=== PATIENT | male | born 1955 ===

== ENCOUNTER 2019-08-11 11:18 | Emergency (ER) | payer OTHER, SELFPAY ==
[2019-08-11 11:36] VITALS: BP 137/78; PULSE 65; RESP 16; TEMP 36.9; O2SAT 98
--- NOTE | 2019-08-11 11:48 | DI.RAD.S_ITS ---
PROCEDURE: XR CHEST 2V INDICATIONS: cough/sob TECHNIQUE: 2 views of the chest were acquired. COMPARISON: [facility], , CHEST 1 VIEW, 11/07/2016, 0:47. FINDINGS: Surgical changes and devices: None. Lungs and pleura: Lungs are clear. No pleural effusions or pneumothorax. Mediastinum: Mediastinal contours are normal. Heart size is normal. Bones and chest wall: No suspicious bony abnormalities. Soft tissues appear unremarkable. IMPRESSION: No acute pulmonary process. Dictated by: Sophia Salguero M.D. on 08/11/2019 at 12:18 Approved by: Sophia Salguero M.D. on 08/11/2019 at 12:19
--- NOTE | 2019-08-11 12:03 | ED_ITS ---
HPI - URI/Sore Throat <HITESH Hartman - Last Filed: 08/11/19 20:19> General Chief Complaint: Upper Respiratory Symptoms Stated Complaint: flu like symptoms Time Seen by Provider: 08/11/19 11:39 Source: patient Mode of arrival: Ambulatory Limitations: no limitations History of Present Illness HPI Narrative: 64-year-old male with history of 30 pack years of smoking, DC 2 years ago, diabetes, and high cholesterol, presents emergency department today complaining of a cough that has been lasting the past 2 weeks. He states he originally had an upper respiratory tract infection with a sore throat and nasal congestion cough. Nasal congestion and sore throat have resolved but he continues to cough. He states it is a intermittent dry cough that is worse at night. He coughs so hard he develops a headache at times. Patient denies any fevers, chills, nausea, vomiting, diarrhea, dysuria, or other concerns. Related Data Home Medications Medication Instructions Recorded Confirmed pioglitazone [Actos] PO QDAY #0 11/07/16 rosuvastatin [Crestor] PO QDAY #0 11/07/16 Previous Rx's Medication Instructions Recorded aspirin 325 mg PO QDAY #30 tab 11/07/16 heparin (porcine) 1,000 unit IV Q1H #10 ml 11/07/16 metoprolol tartrate 25 mg PO Q6H #30 tab 11/07/16 nitroglycerin [Nitrostat] 0.4 mg SUBLINGUAL PRN PRN #30 tab 11/07/16 rosuvastatin [Crestor] 10 mg PO QDAY #30 tab 11/07/16 albuterol sulfate 2 puff INHALATION Q4-6H PRN #8 gram 08/11/19 benzonatate [Tessalon Perles] 100 mg PO BID PRN #20 cap 08/11/19 fluticasone propionate [Flonase 1 spray NASAL BID #15.8 ml 08/11/19 Allergy Relief] Allergies Allergy/AdvReac Type Severity Reaction Status Date / Time No Known Allergies Allergy Uncoded 01/07/18 12:41 Review of Systems <HITESH Hartman - Last Filed: 08/11/19 20:19> Review of Systems Narrative: REVIEW OF SYSTEMS: GENERAL: Denies fevers. HENT: No head trauma or hearing loss. EYES: No loss of vision, double vision, eye pain, irritation or discharge. CARDIOVASCULAR: No chest pain or syncope. RESPIRATORY: Reports cough, see HPI. GASTROINTESTINAL: No nausea, vomiting, diarrhea, or constipation. MUSCULOSKELETAL: No weakness or injury. INTEGUMENTARY: No rash, lesions, or pruritus. NEURO: No memory loss, or confusion. Patient History <HITESH Hartman - Last Filed: 08/11/19 20:19> Medical History Diabetes (Acute) Social History Smoking Status: Current every day smoker tobacco type: cigarettes alcohol intake frequency: holidays/special occasions only Substance Use Type: does not use Exam <HITESH Hartman - Last Filed: 08/11/19 20:19> Initial Vital Signs Initial Vital Signs: Vital Signs Temperature 98.5 F 08/11/19 11:36 Pulse Rate 65 08/11/19 11:36 Respiratory Rate 16 08/11/19 11:36 Blood Pressure 137/78 08/11/19 11:36 Pulse Oximetry 98 08/11/19 11:36 PHYSICAL EXAMINATION: GENERAL: Well groomed, alert, and cooperative. Answers questions promptly and appropriately. Vital signs noted. HENT: Normocephalic, atraumatic. Ear canals patent. TMs intact without mucus or erythema. Oropharynx without erythema. Tonsils are not present. EYES: Conjunctiva pink, sclera white, no periorbital swelling. No discharge. CHEST: Normal to inspection and without deformities. CARDIOVASCULAR: S1 and S2 sounds normal. Regular rate and rhythm, no murmurs, clicks, or bruits. RESPIRATORY: Normal respiratory rate, trachea midline, airway patent. No stri michael, nasal flaring or accessory muscle use. Able to speak in full sentences. Lower lung branch with scattered coarse breath sounds that clear with coughing. No wheezes or crackles heard. MUSCULOSKELETAL: Normal gait and coordination. Equal tone and mass bilaterally. EXTREMITIES: Moves all extremities. SKIN: Warm, dry, soft, appropriate color for ethnicity. No lesions, rashes, or wounds. NEURO: Alert and Oriented X 3. Good coordination. No ataxia or cognitive issues. PSYCH: Appropriate affect and mood. <Gabriele Mariscal DO - Last Filed: 08/11/19 20:20> Initial Vital Signs Initial Vital Signs: Vital Signs Temperature 98.5 F 08/11/19 11:36 Pulse Rate 65 08/11/19 11:36 Respiratory Rate 16 08/11/19 11:36 Blood Pressure 137/78 08/11/19 11:36 Pulse Oximetry 98 08/11/19 11:36 Course <HITESH Hartman - Last Filed: 08/11/19 20:19> Course Course Narrative: Patient was given a DuoNeb during his stay in the emergency department, patient reported improvement after administration of medication. Orders Ordered: ED Orders 08/11/19 11:48 Chest [XR chest 2V] Stat Discontinued Medications Albuterol/Ipratropium (Duoneb) 3 ml INH NOW ONE Stop: 08/11/19 12:04 Last Admin: 08/11/19 12:42 Dose: 3 ml Documented by: KALI Consultations Consultation #1: Patient staffed with Dr. Mariscal. Vital Signs Vital signs: Vital Signs - 8 hr 08/11/19 12:46 Pulse Rate 62 Respiratory Rate 12 Pulse Oximetry 100 <Gabriele Mariscal DO - Last Filed: 08/11/19 20:20> Orders Ordered: ED Orders 08/11/19 11:48 Chest [XR chest 2V] Stat Discontinued Medications Albuterol/Ipratropium (Duoneb) 3 ml INH NOW ONE Stop: 08/11/19 12:04 Last Admin: 08/11/19 12:42 Dose: 3 ml Documented by: KALI Vital Signs Vital signs: Vital Signs - 8 hr 08/11/19 12:46 Pulse Rate 62 Respiratory Rate 12 Pulse Oximetry 100 MDM - URI/Sore Throat <HITESH Hartman - Last Filed: 08/11/19 20:19> Medical Records Attestation: I reviewed the patient's medical records. Lab Data Attestation: I reviewed the patient's lab results. Imaging Data Chest x-ray: Radiologist's impression: [address] [address] XRay Report Signed Patient: Henry Coronado#: [id number] : 5Acct:[id number] Age/Sex: 64 / MDate of Service: 08/11/19 Loc: ED Accession Number: [id number] Procedure: XR chest 2V Ordering Provider: Cynthia Kenney PROCEDURE: XR CHEST 2V INDICATIONS: cough/sob TECHNIQUE: 2 views of the chest were acquired. COMPARISON: [facility], , CHEST 1 VIEW, 11/07/2016, 0:47. FINDINGS: Surgical changes and devices: None. Lungs and pleura: Lungs are clear. No pleural effusions or pneumothorax. Mediastinum: Mediastinal contours are normal. Heart size is normal. Bones and chest wall: No suspicious bony abnormalities. Soft tissues appear unremarkable. IMPRESSION: No acute pulmonary process. Dictated by: Sophia Salguero M.D. on 08/11/2019 at 12:18 Approved by: Sophia Salguero M.D. on 08/11/2019 at 12:19 [facility] Narrative Medical decision making narrative: This is a 64-year-old smoker with 30 pack year history, presenting to the emergency department for prolonged cough after a viral illness. Chest x-rays negative for any consolidation. Differential i ncludes atypical pneumonia (less likely due to lack of systemic symptoms such as fevers shortness of breath), bronchitis (possible due to prolonged cough, very low suspicion for bacterial bronchitis due to lack of systemic symptoms such as fever and tachycardia), COPD (most likely part of respiratory illness due to prolonged smoking history and continue cough, improvement of symptoms with administration of a DuoNeb). Patient was prescribed an albuterol inhaler, tessalon Perles, and Flonase (to help with postnasal drip). Smoking cessation counseling was given to patient. He was encouraged to follow up with his primary care provider in the next few weeks for re-evaluation. Return precautions given for new or worsening symptoms. Discharge Plan Departure Patient Disposition: Home Clinical Impression: Cough Discharge Date/Time: 08/11/19 13:29 Instructions: DI for Cough -- Adult, How to Quit Smoking Activity Restrictions/Additional Instructions: Thank you for entrusting me with your care today. As discussed, your x-rays negative for any acute findings such as pneumonia. I prescribed you ibuprofen for your headache, an albuterol inhaler and Tessalon Perles for your cough, and Flonase to help with postnasal drip. Please follow up with your primary care provider in the next few weeks for re-evaluation. I highly encouraged smoking cessation. Return emergency department if you develop worsening symptoms such as fever, worsening shortness of breath, uncontrollable vomiting, chest pain, or etc. Prescriptions: New albuterol sulfate 90 mcg/actuation HFA aerosol inhaler 2 puff INHALATION Q4-6H PRN (Reason: shortness of breath or wheezing) Qty: 8 RF: 0 benzonatate [Tessalon Perles] 100 mg capsule 100 mg PO BID PRN (Reason: cough) Qty: 20 RF: 0 fluticasone propionate [Flonase Allergy Relief] 50 mcg/actuation spray,suspension 1 spray NASAL BID Qty: 15.8 RF: 0 No Action pioglitazone [Actos] 15 mg tablet PO QDAY Qty: 0 RF: 0 rosuvastatin [Crestor] 5 mg tablet PO QDAY Qty: 0 RF: 0 aspirin 325 MG tablet,delayed release (DR/EC) 325 mg PO QDAY Qty: 30 RF: 0 heparin (porcine) 5,000 UNIT/1 ML solution 1,000 unit IV Q1H Qty: 10 RF: 0 metoprolol tartrate 25 MG tablet 25 mg PO Q6H Qty: 30 RF: 0 nitroglycerin [Nitrostat] 0.4 MG tablet, sublingual 0.4 mg Sublingual PRN PRNQty: 30 RF: 0 rosuvastatin [Crestor] 10 MG tablet 10 mg PO QDAY Qty: 30 RF: 0 <Gabriele Mariscal, DO - Last Filed: 08/11/19 20:20> Sign Out Provider Sign Out Attestation: Dr Mariscal Co-Sign Statement: I was available for consultation during this patient's emergency department visit. This chart is signed by myself for administrative purposes only. I did not have direct contact with this patient during this visit. They were seen independently by the APC.
[2019-08-11] MEDS: ALBUTEROL/IPRATROPIUM 3 ML AMPUL INH (12:42)
[2019-08-11 12:46] VITALS: PULSE 62; RESP 12; O2SAT 100
== END 2019-08-11 13:29 | disposition home or self-care (01) ==
PROVIDERS: Emergency Provider Nurse Practitioner
DX: R05 Cough (principal)
CPT/HCPCS: 71046; 94640; 99282; 99283